=== PATIENT | male | born 1975 | race Caucasian/White ===

== ENCOUNTER 2024-02-01 05:51 | Emergency (ER) | payer OTHER ==
[~2024-02-01] VITALS: Ht 170.2 cm; Wt 104.5 kg
[2024-02-01 06:00] VITALS: BP 170/91; PULSE 84; RESP 14; TEMP 98.3; O2SAT 100
== END 2024-02-01 06:35 | disposition left against medical advice (07) ==
LOC: ER 05:52
DX: M54.50 Low back pain, unspecified (principal); Z53.21 Procedure and treatment not carried out due to patient leaving prior to being seen by health care provider